=== PATIENT | male | born 1975 | race American Indian/Alaskan Native ===

== ENCOUNTER 2016-08-03 14:48 | Emergency (ER) | payer OTHER ==
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
[2016-08-03 19:20] VITALS: BP 143/66
== END 2016-08-03 19:22 | disposition home or self-care (01) ==
LOC: ED 14:48
DX: M54.5 Low back pain (principal); G89.29 Other chronic pain; I10 Essential (primary) hypertension; Z87.891 Personal history of nicotine dependence; Z79.82 Long term (current) use of aspirin; Z79.899 Other long term (current) drug therapy; Z87.828 Personal history of other (healed) physical injury and trauma
CPT/HCPCS: 99282

== ENCOUNTER 2016-12-31 15:30 | Emergency (ER) | payer SELFPAY ==
[2016-12-31 16:25] LABS: Basophils % (Auto) 0.3 % (0.0-1.8); Eosinophils % (Auto) 1.5 % (0.0-4.3); Hemoglobin 15.2 gm/dl (11.8-15.2); Mean Corpuscular HGB Conc 34 % (32-34); Mean Corpuscular Hemoglobin 31 pg (28-32); Mean Corpuscular Volume 92 fl (84-94); Platelet Count 264 K/mm3 (140-440); Red Blood Count 4.88 M/mm3 (3.65-5.03); White Blood Count 8.4 K/mm3 (4.5-11.0)
[2016-12-31 16:47] LABS: Anion Gap 16 mmol/L; Blood Urea Nitrogen 12 mg/dL (9-20); Calcium 9.2 mg/dL (8.4-10.2); Carbon Dioxide 27 mmol/L (22-30); Chloride 101.1 mmol/L (98-107); Glucose 83 mg/dL (75-100); Potassium 4.2 mmol/L (3.6-5.0); Sodium 140 mmol/L (137-145)
[2016-12-31] MEDS ORDERED: MORPHINE IV ONE (19:28)
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
[2016-12-31] MEDS ORDERED: NACL ONE (20:03)
--- NOTE | 2016-12-31 20:49 | Cat Scan Report ---
FINAL REPORT PROCEDURE: CT ANGIO CHEST TECHNIQUE: Computerized tomographic angiography of the chest was performed after the IV injection of iodinated nonionic contrast including image processing. The image data was postprocessed using 2-dimensional multiplanar reformatted (MPR) and 3-dimensional (MIP and/or volume rendered) techniques. HISTORY: chest pain radiating to back sharp COMPARISON: No prior studies are available for comparison. FINDINGS: Likely mild atelectasis is seen in the right lung base laterally. No pneumothorax or pleural effusion is seen. No mediastinal lymphadenopathy is seen. Heart and thoracic aorta are normal in size. No aortic dissection is seen. Possible small hiatus hernia is seen. Timing of contrast bolus in the pulmonary arteries is slightly suboptimal. No pulmonary embolus is seen. IMPRESSION: No pulmonary embolus is seen. Possible small hiatus hernia is seen.
--- NOTE | 2016-12-31 21:28 | Cat Scan Report ---
FINAL REPORT PROCEDURE: CT ANGIO ABDOMEN PELVIS TECHNIQUE: Computerized axial tomographic angiography of the abdomen and pelvis was performed after the IV injection of iodinated nonionic contrast. The image data was postprocessed using 3D MIP technique. HISTORY: chest pain radiating to back sharp COMPARISON: No prior studies are available for comparison. FINDINGS: Liver and spleen appear normal. Gallbladder, pancreas, and adrenal glands appear normal. No renal or bladder abnormality is seen. There is no free pelvic fluid. Appendix is not seen but no pericecal inflammation is seen. There may be mild constipation but no suggestion of colitis is seen. No evidence of bowel obstruction is seen. The abdominal aorta is normal in size. No stenosis is seen in the aorta or iliac arteries. There is no narrowing of the renal arteries. Accessory renal artery is seen inferiorly on the right. Main left renal vein passes anterior to the aorta but the accessory left renal vein passes posterior to the aorta. No stenosis is seen of the SMA. Distal SMA branches appear to enhance normally. 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 It could be a congenital variant, as no plaque is seen in this region. There is seen likely mild poststenotic dilation. Small hiatus hernia is seen. Shotty reactive lymph nodes are seen in the retroperitoneum and small bowel mesentery. 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 This may be a congenital variant as no associated plaque or extrinsic mass effect is seen. There is likely mild diffuse constipation.
[2017-01-01 00:28] VITALS: BP 122/77
--- NOTE | 2017-01-01 07:49 | XRay Report ---
Chest 2 views: Compared to 06/24/15. History: Chest pain. Findings: Normal cardiomediastinal silhouette. Trachea is midline. No consolidation, pneumothorax or pleural effusion. Impression: No acute cardiopulmonary findings.
== END 2017-01-01 00:27 | disposition home or self-care (01) ==
LOC: ED 15:30
DX: R07.89 Other chest pain (principal); K59.00 Constipation, unspecified; I10 Essential (primary) hypertension; J45.909 Unspecified asthma, uncomplicated; Z88.6 Allergy status to analgesic agent; Z79.82 Long term (current) use of aspirin
CPT/HCPCS: 36415; 71020; 71275; 74174; 80048; 84484; 85025; 85379; 93005; 93010; 96374; 99285; J2270; Q9967

== ENCOUNTER 2017-03-01 20:27 | Emergency (ER) | payer SELFPAY ==
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
[2017-03-02] MEDS ORDERED: PERCOCET 5/325 PO ONE (03:10)
[2017-03-02] MEDS ORDERED: FLEXERIL PO ONE (03:10)
[2017-03-02 04:32] VITALS: BP 144/95
== END 2017-03-02 03:35 | disposition home or self-care (01) ==
LOC: ED 20:27
DX: G89.29 Other chronic pain (principal); M54.6 Pain in thoracic spine; I10 Essential (primary) hypertension; J45.909 Unspecified asthma, uncomplicated; F17.210 Nicotine dependence, cigarettes, uncomplicated; Z79.82 Long term (current) use of aspirin
CPT/HCPCS: 99282

== ENCOUNTER 2017-04-21 14:55 | Emergency (ER) | payer SELFPAY ==
[2017-04-21] MEDS ORDERED: TORADOL IM ONE (20:12)
[2017-04-21] MEDS ORDERED: TYLENOL PO ONE (20:14)
--- NOTE | 2017-04-21 21:34 | XRay Report ---
FINAL REPORT PROCEDURE: XR SPINE LUMBOSACRAL 2-3V TECHNIQUE: Lumbar spine radiographs, including AP, lateral, and lumbosacral spot views. CPT 36071 HISTORY: spinal tenderness COMPARISON: No prior studies are available for comparison. FINDINGS: The vertebral body heights and alignment are maintained. Disc spaces are preserved. No scoliosis. No focal osseous lesion is seen. IMPRESSION: No acute abnormality is identified.
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
[2017-04-21 23:05] VITALS: BP 134/87
== END 2017-04-21 22:10 | disposition home or self-care (01) ==
LOC: ED 14:55
DX: S39.012A Strain of muscle, fascia and tendon of lower back, initial encounter (principal); I10 Essential (primary) hypertension; J45.909 Unspecified asthma, uncomplicated; Z88.8 Allergy status to other drugs, medicaments and biological substances; X58.XXXA Exposure to other specified factors, initial encounter; Y93.89 Activity, other specified; Y99.8 Other external cause status; Y92.89 Other specified places as the place of occurrence of the external cause
CPT/HCPCS: 72100; 99283

== ENCOUNTER 2017-06-18 08:11 | Emergency (ER) | payer OTHER ==
[2017-06-18 08:49] LABS: Basophils % (Auto) 0.4 % (0.0-1.8); Eosinophils % (Auto) 1.9 % (0.0-4.3); Hematocrit 43.5 % (35.5-45.6); Hemoglobin 14.9 gm/dl (11.8-15.2); Mean Corpuscular HGB Conc 34 % (32-34); Mean Corpuscular Hemoglobin 32 pg (28-32); Mean Corpuscular Volume 93 fl (84-94); Platelet Count 219 K/mm3 (140-440); Red Cell Distribution Width 13.6 % (13.2-15.2); White Blood Count 13.3 K/mm3 (4.5-11.0)
[2017-06-18 09:04] LABS: Anion Gap 17 mmol/L; BUN/Creatinine Ratio 10; Blood Urea Nitrogen 7 mg/dL (9-20); Calcium 8.9 mg/dL (8.4-10.2); Carbon Dioxide 25 mmol/L (22-30); Chloride 102.1 mmol/L (98-107); Glucose 102 mg/dL (75-100); Sodium 140 mmol/L (137-145)
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
[2017-06-18] MEDS ORDERED: PROVENTIL IH ONE (13:21)
[2017-06-18] MEDS ORDERED: NORCO 5/325 PO ONE (13:21)
[2017-06-18] MEDS ORDERED: ATROVENT IH ONE (13:21)
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
[2017-06-18 13:40] LABS: Creatine Kinase MB 11.2 ng/mL (0.0-4.0)
[2017-06-18 13:53] LABS: Creatine Kinase 3201 units/L (55-170)
[2017-06-18] MEDS ORDERED: NACL 0.9% 1000 ML 1,000 ML IV ONE ×2 (13:57→15:20)
[2017-06-18] MEDS ORDERED: PLAVIX PO ONE (13:58)
[2017-06-18] MEDS ORDERED: NITRO-BID 2% TP ONE (13:59)
--- NOTE | 2017-06-18 15:19 | History and Physical Report ---
History of Present Illness Chief complaint: Im coughing, and my chest hurts History of present illness: 42 YO Male HTN, Asthma presents to ED for evaluation. Pt seen and evaluated in ED for atypical chest pain and productive cough suspicious for Atypical pneumonia. Pt treated with cardiac enzyme, ekg, and telemetry monitoring which was not indicative of acute ischemia. Pt treated with Iv abx and IVF with resolution of symptoms. Pt medically optimized and back to usual state of health. Pt discharged home and instructed to f/u pcp 1wk. Past History Past Medical History: other (asthma) Past Surgical History: No surgical history, Other (reviewed) Social history: , lives with family. denies: smoking, alcohol abuse, prescription drug abuse Family history: no significant family history Medications and Allergies Allergies Allergy/AdvReac Type Severity Reaction Status Date / Time ibuprofen Allergy Unknown Verified 05/04/17 14:56 Home Medications Medication Instructions Recorded Confirmed Last Taken Type Ciprofloxacin HCl [Ciprofloxacin 500 mg PO Q12H #14 tab 06/18/17 Unknown Rx TAB] Active Meds: Active Medications Sodium Chloride (Nacl 0.9% 1000 Ml) 1,000 mls @ 250 mls/hr IV ONCE ONE Stop: 06/18/17 17:56 Last Admin: 06/18/17 15:15 Dose: 250 mls/hr Review of Systems Constitutional: no weight loss, no weight gain, no fever, no chills Ears, nose, mouth and throat: no ear pain, no ear discharge, no tinnitis, no decreased hearing, no nose pain, no nasal congestion Respiratory: cough, no hemoptysis, no shortness of breath, no dyspnea on exertion Gastrointestinal: no abdominal pain, no nausea, no vomiting, no diarrhea Genitourinary Male: no hematuria, no flank pain, no discharge, no urinary frequency Rectal: no pain, no incontinence, no bleeding Musculoskeletal: no neck stiffness, no neck pain, no shooting arm pain, no arm numbness/tingling, no low back pain Integumentary: no rash, no pruritis, no redness, no sores, no wounds, no jaundice Neurological: no transient paralysis, no paralysis, no weakness, no parathesias , no numbness, no tingling, no seizures Psychiatric: no anxiety, no memory loss, no change in sleep habits, no hypersomnia, no change in appetite, no change in libido Endocrine: no cold intolerance, no heat intolerance, no polyphagia, no excessive thirst, no polydipsia Hematologic/Lymphatic: no easy bruising, no easy bleeding Allergic/Immunologic: no urticaria, no allergic rhinitis, no wheezing Exam - Constitutional Vitals: Temp Pulse Resp BP Pulse Ox 99.2 F 86 16 126/84 97 06/18/17 13:19 06/18/17 14:53 06/18/17 13:36 06/18/17 14:53 06/18/17 13:19 General appearance: Present: no acute distress, well-nourished - EENT Eyes: Present: PERRL ENT: hearing intact, clear oral mucosa - Neck Neck: Present: supple, normal ROM - Respiratory Respiratory effort: normal Respiratory: bilateral: CTA - Cardiovascular Heart Sounds: Present: S1 & S2. Absent: rub, click - Extremities Extremities: pulses symmetrical, No edema Peripheral Pulses: within normal limits - Abdominal General gastrointestinal: Present: soft, non-tender, non-distended, normal bowel sounds Male genitourinary: Present: normal - Integumentary Integumentary: Present: clear, warm, dry - Musculoskeletal Musculoskeletal: gait normal, strength equal bilaterally - Psychiatric Psychiatric: appropriate mood/affect, intact judgment & insight - Neurologic Neurologic: CNII-XII intact, moves all extremities Results - Labs CBC & Chem 7: 06/18/17 08:29 06/18/17 08:29 Labs: Abnormal lab results 06/18/17 06/18/17 06/18/17 Range/Units 08:29 08:29 Unknown WBC 13.3 H (4.5-11.0) K/mm3 Lymph % (Auto) 9.4 L (13.4-35.0) % Seg Neutrophils % 82.4 H (40.0-70.0) % Seg Neutrophils # 11.0 H (1.8-7.7) K/mm3 BUN 7 L (9-20) mg/dL Creatinine 0.7 L (0.8-1.5) mg/dL Glucose 102 H (75-100) mg/dL Total Creatine Kinase 3201 H (55-170) units/L CK-MB (CK-2) 11.2 H (0.0-4.0) ng/mL Assessment and Plan - Patient Problems (1) Atypical pneumonia Current Visit: Yes Status: Acute Plan to address problem: IV abx, CXR, Pt discharged home with oral abx, and instructed to f/u pcp within 1wk. (2) Atypical chest pain Current Visit: No Status: Acute Plan to address problem: secondary to atypical pneumonia, and persistent cough.
[2017-06-18] MEDS ORDERED: LEVAQUIN 750MG/150ML 750 MG/150 ML BAG IV ONE (16:00)
[2017-06-18 19:01] VITALS: BP 135/79
== END 2017-06-18 19:03 | disposition admitted as inpatient to this hospital (09) ==
LOC: ED 08:11
DX: R07.89 Other chest pain (principal); M62.82 Rhabdomyolysis; I10 Essential (primary) hypertension; J45.909 Unspecified asthma, uncomplicated; G89.29 Other chronic pain
CPT/HCPCS: 36415; 71020; 80048; 82550; 82553; 83880; 84484; 85025; 85379; 87040; 93005; 93010; 94640; 96361; 96365; 99284; J1956; J7030

== ENCOUNTER 2017-07-01 14:42 | Emergency (ER) | payer SELFPAY | END 2017-07-01 17:30 | disposition left against medical advice (07) | LOC: ED 14:42 | DX: Z53.21 Procedure and treatment not carried out due to patient leaving prior to being seen by health care provider (principal) ==

== ENCOUNTER 2017-09-25 08:39 | Inpatient (IN) | payer BC, OTHER ==
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
[2017-09-25] MEDS ORDERED: NORCO 10/325 PO ONE (09:45)
[2017-09-25] MEDS ORDERED: ZOFRAN ODT PO ONE (09:45)
--- NOTE | 2017-09-25 10:21 | XRay Report ---
AP AND LATERAL LUMBOSACRAL SPINE: History: Lower back pain, sciatica The vertebral bodies are well mineralized and normal in alignment and vertebral height with well preserved interspace distances. The visualized portions of the posterior elements are normal. IMPRESSION: Lumbar spine within normal limits.
[2017-09-25 10:51] LABS: Bacteria,Urine 1+ /HPF (Negative); Bilirubin,Urine NEG (Negative); Blood,Urine MOD (Negative); Color,Urine Yellow (Yellow); Mucus,Urine FEW /HPF; Protein,Urine <15 mg/dL mg/dL (Negative); Urobilinogen,Urine < 2.0 mg/dL (<2.0)
[2017-09-25] MEDS ORDERED: TYLENOL PO ONE (11:30)
[2017-09-25 12:03] LABS: Basophils % (Auto) 0.5 % (0.0-1.8); Eosinophils # (Auto) 0.2 K/mm3 (0.0-0.4); Eosinophils % (Auto) 2.3 % (0.0-4.3); Hematocrit 50.7 % (35.5-45.6); Hemoglobin 17.4 gm/dl (11.8-15.2); Lymphocytes # (Auto) 2.5 K/mm3 (1.2-5.4); Lymphocytes % (Auto) 29.2 % (13.4-35.0); Mean Corpuscular HGB Conc 34 % (32-34); Mean Corpuscular Hemoglobin 31 pg (28-32); Mean Corpuscular Volume 91 fl (84-94); Monocytes % (Auto) 11.2 % (0.0-7.3); Platelet Count 247 K/mm3 (140-440); Red Blood Count 5.56 M/mm3 (3.65-5.03); Red Cell Distribution Width 14.1 % (13.2-15.2)
[2017-09-25 12:40] LABS: BUN/Creatinine Ratio 13; Blood Urea Nitrogen 10 mg/dL (9-20); Calcium 8.9 mg/dL (8.4-10.2); Hemolysis Index 10
[2017-09-25] MEDS ORDERED: NACL 0.9% 1000 ML 1,000 ML IV ONE ×2 (12:56→17:26)
[2017-09-25] MEDS ORDERED: ZOFRAN IV ONE (13:46)
[2017-09-25] MEDS ORDERED: MORPHINE IV ONE ×2 (13:46→17:27)
[2017-09-25] MEDS ORDERED: NACL ONE (13:49)
[2017-09-25 14:05] LABS: INR 0.93 (0.87-1.13)
[2017-09-25 14:06] LABS: Partial Thromboplastin Time 27.2 Sec. (24.2-36.6)
--- NOTE | 2017-09-25 15:28 | Cat Scan Report ---
FINAL REPORT EXAM: CT ANGIO ABDOMEN PELVIS HISTORY: lower abd pain, hx of celiac stenosis TECHNIQUE: Multiple sections through the abdomen after IV contrast Multiple sections through the pelvis after IV contrast CT angiographic image post processing of the abdomen and pelvis. PRIORS: 12/31/2016 FINDINGS: Normal-appearing liver, gallbladder, adrenals, pancreas, and spleen normal caliber IVC. Normal-appearing kidneys and ureters Small fat containing umbilical hernia very small fat containing inguinal hernia bilaterally. No retroperitoneal adenopathy. No evidence of mesenteric mass. Normal-appearing stomach and duodenum. No small bowel distention in the abdomen and pelvis. No pelvic free fluid. Normal-appearing urinary bladder, prostate, seminal vesicles, and rectum. No definite sigmoid colon abnormality. No gross ascites, free air, or colonic distention. Normal-appearing cecum and terminal ileum. Appendix not visible. Suture line at the cecal tip may reflect prior appendectomy. CTA images demonstrate normal caliber abdominal aorta without aneurysm or dissection. Diffusely patent SMA and renal arteries. Patent [place]. Once again, there is approximately 90 % diameter severe narrowing at the proximal aspect of the celiac artery involving a segment of approximately 6 mm long. The narrowing is noted just distal to the origin IMPRESSION: Again noted is severe narrowing at the proximal celiac artery, approximately 90 % diameter over a 6 mm long segment Small fat containing umbilical hernia and very small fat containing inguinal hernias
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
[2017-09-25] MEDS ORDERED: MORPHINE IV PRN (21:02)
[2017-09-25] MEDS ORDERED: ZOFRAN IV PRN (21:02)
[2017-09-25] MEDS ORDERED: SODIUM CHLORIDE FLUSH SYRINGE 10 ML IV PRN (21:02)
[2017-09-25] MEDS ORDERED: TYLENOL PO PRN (21:02)
[2017-09-25] MEDS: D5NS 1,000 ML IV SCH (22:58)
[2017-09-25] MEDS: DILAUDID IV PRN (22:58)
[2017-09-25] MEDS: SODIUM CHLORIDE FLUSH SYRINGE 10 ML IV SCH (22:59)
[2017-09-26] MEDS: DILAUDID IV PRN ×3 (04:35→21:41)
[2017-09-26 06:41] LABS: Basophils % (Auto) 0.5 % (0.0-1.8); Eosinophils # (Auto) 0.1 K/mm3 (0.0-0.4); Eosinophils % (Auto) 1.9 % (0.0-4.3); Hematocrit 51.3 % (35.5-45.6); Hemoglobin 17.3 gm/dl (11.8-15.2); Lymphocytes # (Auto) 2.5 K/mm3 (1.2-5.4); Lymphocytes % (Auto) 33.8 % (13.4-35.0); Mean Corpuscular HGB Conc 34 % (32-34); Mean Corpuscular Hemoglobin 31 pg (28-32); Mean Corpuscular Volume 93 fl (84-94); Monocytes # (Auto) 0.7 K/mm3 (0.0-0.8); Monocytes % (Auto) 9.9 % (0.0-7.3); Platelet Count 245 K/mm3 (140-440); Red Cell Distribution Width 14.1 % (13.2-15.2)
[2017-09-26] MEDS: D5NS 1,000 ML IV SCH ×2 (06:44→14:53)
[2017-09-26 07:32] LABS: Alanine Aminotransferase 19 units/L (7-56); Albumin 3.8 g/dL (3.9-5); BUN/Creatinine Ratio 10; Blood Urea Nitrogen 8 mg/dL (9-20); Calcium 8.6 mg/dL (8.4-10.2); Hemolysis Index 19
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
[2017-09-26] MEDS: COZAAR PO SCH (09:33)
[2017-09-26] MEDS: SODIUM CHLORIDE FLUSH SYRINGE 10 ML IV SCH ×2 (09:34→21:39)
[2017-09-26] MEDS: NORCO 5/325 PO PRN (10:01)
--- NOTE | 2017-09-26 15:33 | Progress Note ---
Assessment and Plan Assessment and plan: --Celiac artery stenosis; on CTA abdomen Vascular evaluated the patient, no intervention needed advised aspirin --Low back pain; possible radiculopathy Pending MRI lumbosacral spine, and medications Ambulate as tolerated --Hypertension; moderate control Continue current antihypertensives and when necessary medications --DVT prophylaxis; heparin Closely monitor the patient and adjust management as needed Patient may need to follow neurosurgery/orthopedic for further evaluation of his low back pain Possible discharge in 1-2 days if stabl History Interval history: Patient seen and examined medical records reviewed Vascular evaluation and recommendations noted and appreciated MRI lumbosacral spine pending Patiently slightly but pain slightly improved Metabolic oriented 3 not in acute distress Hospitalist Physical - Constitutional Vitals: Temp Pulse Resp BP Pulse Ox 98.3 F 54 L 20 140/75 100 09/26/17 08:00 09/26/17 08:00 09/26/17 08:00 09/26/17 09:33 09/26/17 08:00 General appearance: Present: no acute distress, well-nourished, obese - EENT Eyes: Present: PERRL, EOM intact - Neck Neck: Present: supple, normal ROM - Respiratory Respiratory effort: normal Respiratory: bilateral: diminished, negative: rales, rhonchi, wheezing - Cardiovascular Rhythm: regular Heart Sounds: Present: S1 & S2 - Extremities Extremities: no ischemia, No edema - Abdominal General gastrointestinal: soft, non-tender, non-distended, normal bowel sounds - Integumentary Integumentary: Present: clear, warm - Psychiatric Psychiatric: appropriate mood/affect, cooperative - Neurologic Neurologic: CNII-XII intact, moves all extremities Results - Labs CBC & Chem 7: 09/26/17 05:46 09/26/17 05:46 Labs: Laboratory Last Values WBC 7.3 K/mm3 (4.5-11.0) 09/26/17 05:46 RBC 5.50 M/mm3 (3.65-5.03) H 09/26/17 05:46 Hgb 17.3 gm/dl (11.8-15.2) H 09/26/17 05:46 Hct 51.3 % (35.5-45.6) H 09/26/17 05:46 MCV 93 fl (84-94) 09/26/17 05:46 MCH 31 pg (28-32) 09/26/17 05:46 MCHC 34 % (32-34) 09/26/17 05:46 RDW 14.1 % (13.2-15.2) 09/26/17 05:46 Plt Count 245 K/mm3 (140-440) 09/26/17 05:46 Lymph % (Auto) 33.8 % (13.4-35.0) 09/26/17 05:46 [place] % (Auto) 9.9 % (0.0-7.3) H 09/26/17 05:46 Eos % (Auto) 1.9 % (0.0-4.3) 09/26/17 05:46 Baso % (Auto) 0.5 % (0.0-1.8) 09/26/17 05:46 Lymph # 2.5 K/mm3 (1.2-5.4) 09/26/17 05:46 [place] # 0.7 K/mm3 (0.0-0.8) 09/26/17 05:46 Eos # 0.1 K/mm3 (0.0-0.4) 09/26/17 05:46 Baso # 0.0 K/mm3 (0.0-0.1) 09/26/17 05:46 Seg Neutrophils % 53.9 % (40.0-70.0) 09/26/17 05:46 Seg Neutrophils # 3.9 K/mm3 (1.8-7.7) 09/26/17 05:46 PT 12.9 Sec. (12.2-14.9) 09/25/17 13:28 INR 0.93 (0.87-1.13) 09/25/17 13:28 APTT 27.2 Sec. (24.2-36.6) 09/25/17 13:28 Sodium 142 mmol/L (137-145) 09/26/17 05:46 Potassium 4.0 mmol/L (3.6-5.0) 09/26/17 05:46 Chloride 100.7 mmol/L (98-107) 09/26/17 05:46 Carbon Dioxide 30 mmol/L (22-30) 09/26/17 05:46 Anion Gap 15 mmol/L 09/26/17 05:46 BUN 8 mg/dL (9-20) L 09/26/17 05:46 Creatinine 0.8 mg/dL (0.8-1.5) 09/26/17 05:46 Estimated GFR > 60 ml/min 09/26/17 05:46 BUN/Creatinine Ratio 10 % 09/26/17 05:46 Glucose 87 mg/dL (75-100) 09/26/17 05:46 Lactic Acid 2.60 mmol/L (0.7-2.0) H* 09/25/17 16:52 Calcium 8.6 mg/dL (8.4-10.2) 09/26/17 05:46 Total Bilirubin 0.80 mg/dL (0.1-1.2) 09/26/17 05:46 AST 20 units/L (5-40) 09/26/17 05:46 ALT 19 units/L (7-56) 09/26/17 05:46 Alkaline Phosphatase 60 units/L (35-129) 09/26/17 05:46 Total Creatine Kinase 294 units/L (55-170) H 09/25/17 11:39 Total Protein 6.9 g/dL (6.3-8.2) 09/26/17 05:46 Albumin 3.8 g/dL (3.9-5) L 09/26/17 05:46 Albumin/Globulin Ratio 1.2 % 09/26/17 05:46 Urine Color Yellow (Yellow) 09/25/17 10:34 Urine Turbidity Clear (Clear) 09/25/17 10:34 Urine pH 5.0 (5.0-7.0) 09/25/17 10:34 Ur Specific [place] 1.020 (1.003-1.030) 09/25/17 10:34 Urine Protein <15 mg/dl mg/dL (Negative) 09/25/17 10:34 Urine Glucose (UA) Neg mg/dL (Negative) 09/25/17 10:34 Urine Ketones Neg mg/dL (Negative) 09/25/17 10:34 Urine Blood Mod (Negative) 09/25/17 10:34 Urine Nitrite Neg (Negative) 09/25/17 10:34 Urine Bilirubin Neg (Negative) 09/25/17 10:34 Urine Urobilinogen < 2.0 mg/dL (<2.0) 09/25/17 10:34 Ur Leukocyte Esterase Neg (Negative) 09/25/17 10:34 Urine WBC (Auto) 1.0 /HPF (0.0-6.0) 09/25/17 10:34 Urine RBC (Auto) 14.0 /HPF (0.0-6.0) 09/25/17 10:34 U Epithel Cells (Auto) < 1.0 /HPF (0-13.0) 09/25/17 10:34 Urine Bacteria (Auto) 1+ /HPF (Negative) 09/25/17 10:34 Urine Mucus Few /HPF 09/25/17 10:34 Blood Type A POSITIVE 09/25/17 13:28 Antibody Screen Negative 09/25/17 13:28
[2017-09-27] MEDS: D5NS 1,000 ML IV SCH (03:19)
[2017-09-27] MEDS: DILAUDID IV PRN ×2 (03:27→08:59)
[2017-09-27] MEDS: SODIUM CHLORIDE FLUSH SYRINGE 10 ML IV SCH (09:00)
[2017-09-27] MEDS: COZAAR PO SCH (11:02)
--- NOTE | 2017-09-27 13:18 | Discharge Summary ---
Providers - Providers Date of Admission: 09/25/17 16:39 Date of discharge: 09/27/17 Attending physician: SUSU MILLER 09/25/17 21:02 Consult to Physician [CONS] Routine Comment: Consulting Provider: SANTIAGO BARBOSA Physician Instructions: Reason For Exam: Celiac artery occlusion Primary care physician: HOUSING INSPECTOR Hospitalization Condition: Stable Disposition: DC-01 TO HOME OR SELFCARE Time spent for discharge: 31 min Core Measure Documentation - Palliative Care Palliative Care/ Comfort Measures: Not Applicable - Core Measures Any of the following diagnoses?: none Exam - Constitutional Vitals: Temp Pulse Resp BP Pulse Ox 98.5 F 58 L 20 147/62 99 09/27/17 11:27 09/27/17 11:27 09/27/17 11:27 09/27/17 11:27 09/27/17 11:27 General appearance: Present: no acute distress, well-nourished - EENT Eyes: Present: PERRL, EOM intact - Neck Neck: Present: supple, normal ROM - Respiratory Respiratory effort: normal Respiratory: bilateral: diminished, negative: rales, rhonchi, wheezing - Cardiovascular Rhythm: regular Heart Sounds: Present: S1 & S2 - Extremities Extremities: no ischemia, No edema - Abdominal General gastrointestinal: Present: soft, non-tender, non-distended, normal bowel sounds - Integumentary Integumentary: Present: clear, warm - Musculoskeletal Musculoskeletal: strength equal bilaterally - Psychiatric Psychiatric: appropriate mood/affect, cooperative - Neurologic Neurologic: CNII-XII intact, moves all extremities Plan Activity: no restrictions Diet: regular Additional Instructions: Advised to see private neurosurgeon or orthopedic surgeon. For further evaluation and management Follow up with: [facility] [place]Outside] - 3-5 Days [facility] [Outside] - 3-5 Days KARINA HASSAN MD [Staff Physician] - 3-5 Days ARMAND DALE MD [Staff Physician] - 7 Days Prescriptions: HYDROcodone/APAP 5-325 [[place] 5-325 mg TAB] 1 each PO BID PRN #10 tablet PRN Reason: Pain, Moderate (4-6) Losartan [Cozaar] 50 mg PO QDAY #30 tablet
--- NOTE | 2017-09-27 16:40 | Magnetic Resonance Report ---
FINAL REPORT EXAM: MR LUMBAR SPINE WO CON HISTORY: Lumbar radiculopathy TECHNIQUE: MRI lumbar spine without contrast PRIORS: None. FINDINGS: Distal cord and conus demonstrate normal signal intensity From T12-L1 through L4-5 there is no focal disc herniation or bulge there is no evidence for canal or foraminal stenosis There is a moderate broad-based central posterior disc herniation of the protrusion type at L5-S1. Disc contacts the anterior aspect of the thecal sac and the S1 nerve roots at the lateral recesses. There is signal change within S1 vertebral body which is low signal on T1 and high signal on T2 representing Modic type 1 changes There is a small focus of endplate signal seen at the posterior inferior aspect of the L5 vertebral body consistent with Modic type 2 changes. There is no evidence for increased signal within the disc to suggest presence of discitis. IMPRESSION: Posterior disc herniation at L5-S1 with Modic 1 signal changes S1 vertebral body and small focus of Modic type 2 signal change L5 vertebral body.
[2017-09-27 17:19] VITALS: BP 138/82
[2017-09-27] MEDS: NORCO 5/325 PO PRN (17:19)
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
== END 2017-09-27 19:12 | disposition home or self-care (01) | DRG 392 ==
LOC: ED 08:39 → 3A 16:39 → ED 19:08
PROVIDERS: ADMIT Internal Medicine; ATTEND Internal Medicine
DX: I77.4 Celiac artery compression syndrome (principal); E87.2 Acidosis; I10 Essential (primary) hypertension; M54.10 Radiculopathy, site unspecified; Z88.8 Allergy status to other drugs, medicaments and biological substances; J45.909 Unspecified asthma, uncomplicated; Z87.891 Personal history of nicotine dependence; M54.32 Sciatica, left side; E86.0 Dehydration
CPT/HCPCS: 36415; 72040; 72100; 72148; 74174; 80048; 80053; 81001; 82140; 82550; 85025; 85610; 85730; 86850; 86900; 86901; 96361; 96374; 96375; J1170; J2270; J2405; J7030; J7042; Q0162; Q9967

== ENCOUNTER 2017-10-21 07:59 | Emergency (ER) | payer BC, OTHER ==
[2017-10-21] MEDS ORDERED: TYLENOL PO ONE (08:00)
[2017-10-21 08:13] VITALS: BP 153/103
[2017-10-21] MEDS ORDERED: TYLENOL ONE (08:15)
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
== END 2017-10-21 11:04 | disposition home or self-care (01) ==
LOC: ED 07:59
DX: M54.32 Sciatica, left side (principal); Z88.8 Allergy status to other drugs, medicaments and biological substances
CPT/HCPCS: 99282

== ENCOUNTER 2019-08-02 10:32 | Emergency (ER) | payer SELFPAY ==
[2019-08-02] MEDS ORDERED: SODIUM CHLORIDE 0.9% 1000 ML 1,000 ML IV ONE (10:46)
[2019-08-02] MEDS ORDERED: NALOXONE 0.4 MG/1 ML INJ IV ONE (10:46)
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
[2019-08-02 11:58] LABS: Basophils # (Auto) 0.1 K/mm3 (0.0-0.1); Basophils % (Auto) 0.7 % (0.0-1.8); Eosinophils # (Auto) 0.1 K/mm3 (0.0-0.4); Eosinophils % (Auto) 0.8 % (0.0-4.3); Hematocrit 40.9 % (35.5-45.6); Hemoglobin 13.8 gm/dl (11.8-15.2); Lymphocytes # (Auto) 1.1 K/mm3 (1.2-5.4); Lymphocytes % (Auto) 11.1 % (13.4-35.0); Mean Corpuscular HGB Conc 34 % (32-34); Mean Corpuscular Volume 92 fl (84-94); Monocytes # (Auto) 0.8 K/mm3 (0.0-0.8); Monocytes % (Auto) 7.5 % (0.0-7.3); Platelet Count 255 K/mm3 (140-440); Red Blood Count 4.43 M/mm3 (3.65-5.03); Red Cell Distribution Width 14.6 % (13.2-15.2)
[2019-08-02 12:12] LABS: Alanine Aminotransferase 26 units/L (7-56); Albumin 3.8 g/dL (3.9-5); BUN/Creatinine Ratio 19; Blood Urea Nitrogen 15 mg/dL (9-20); Calcium 8.4 mg/dL (8.4-10.2); Hemolysis Index 17
[2019-08-02 12:34] LABS: Bilirubin,Urine NEG (Negative); Blood,Urine MOD (Negative); Color,Urine Straw (Yellow); Protein,Urine <15 mg/dL mg/dL (Negative); Urobilinogen,Urine < 2.0 mg/dL (<2.0); WBC,Urine < 1.0 /HPF (0.0-6.0)
[2019-08-02 12:50] LABS: Amphetamine Screen,Urine PRESUMPTIVE NEGATIVE; Benzodiazepines Screen,Urine PRESUMPTIVE NEGATIVE; Cannabinoid Screen,Urine PRESUMPTIVE NEGATIVE; Cocaine Screen,Urine PRESUMPTIVE NEGATIVE; Methadone Screen,Urine PRESUMPTIVE NEGATIVE
[2019-08-02 13:10] LABS: Opiate Screen,Urine PRESUMPTIVE POSITIVE
[2019-08-02] MEDS ORDERED: ACETAMINOPHEN 325 MG TAB PO ONE (17:18)
[2019-08-02] MEDS ORDERED: ACETAMINOPHEN 325 MG TAB ONE (17:25)
[2019-08-02 18:56] VITALS: BP 116/76
== END 2019-08-02 18:50 | disposition home or self-care (01) ==
LOC: ED 10:32
DX: R41.82 Altered mental status, unspecified (principal); F11.10 Opioid abuse, uncomplicated; F32.9 Major depressive disorder, single episode, unspecified; I10 Essential (primary) hypertension; J45.909 Unspecified asthma, uncomplicated; Z79.899 Other long term (current) drug therapy; Z88.6 Allergy status to analgesic agent
CPT/HCPCS: 36415; 80053; 80307; 81001; 85025; 96361; 96374; 99284; J2310; J7030

== ENCOUNTER 2020-03-09 10:56 | Emergency (ER) | payer SELFPAY ==
[2020-03-09] MEDS ORDERED: NALOXONE 2 MG/2 ML INJ ONE (11:02)
[2020-03-09] MEDS ORDERED: ONDANSETRON 4 MG/2 ML INJ ONE (11:06)
[2020-03-09] MEDS ORDERED: NALOXONE 0.4 MG/1 ML INJ IV ONE (11:09)
[2020-03-09] MEDS ORDERED: NALOXONE 2 MG/2 ML 2 MG in SODIUM CHLORIDE 0.9% 500 ML 500 ML IV ONE (11:09)
[2020-03-09] MEDS ORDERED: SODIUM CHLORIDE 0.9% 1000 ML 1,000 ML IV ONE (11:09)
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
[2020-03-09 12:23] LABS: Basophils % (Auto) 0.5 % (0.0-1.8); Eosinophils # (Auto) 0.2 K/mm3 (0.0-0.4); Eosinophils % (Auto) 2.4 % (0.0-4.3); Hematocrit 44.4 % (35.5-45.6); Lymphocytes # (Auto) 1.2 K/mm3 (1.2-5.4); Lymphocytes % (Auto) 18.9 % (13.4-35.0); Mean Corpuscular HGB Conc 34 % (32-34); Mean Corpuscular Volume 94 fl (84-94); Monocytes # (Auto) 0.7 K/mm3 (0.0-0.8); Monocytes % (Auto) 10.3 % (0.0-7.3); Platelet Count 245 K/mm3 (140-440); Red Blood Count 4.72 M/mm3 (3.65-5.03); Red Cell Distribution Width 13.6 % (13.2-15.2)
[2020-03-09 12:34] LABS: Alanine Aminotransferase 18 units/L (7-56); Albumin 4.1 g/dL (3.9-5); BUN/Creatinine Ratio 12; Blood Urea Nitrogen 12 mg/dL (9-20); Calcium 9.3 mg/dL (8.4-10.2); Hemolysis Index 4
[2020-03-09 12:35] LABS: Bilirubin,Direct < 0.2 mg/dL (0-0.2)
[2020-03-09 13:57] LABS: Bilirubin,Urine NEG (Negative); Blood,Urine SM (Negative); Color,Urine Straw (Yellow); Mucus,Urine FEW /HPF; Protein,Urine <15 mg/dL mg/dL (Negative); Urobilinogen,Urine < 2.0 mg/dL (<2.0)
[2020-03-09 14:06] LABS: Amphetamine Screen,Urine PRESUMPTIVE NEGATIVE; Benzodiazepines Screen,Urine PRESUMPTIVE NEGATIVE; Cannabinoid Screen,Urine PRESUMPTIVE POSITIVE; Cocaine Screen,Urine PRESUMPTIVE NEGATIVE; Methadone Screen,Urine PRESUMPTIVE NEGATIVE; Opiate Screen,Urine PRESUMPTIVE NEGATIVE
[2020-03-09 15:36] VITALS: BP 141/76
== END 2020-03-09 18:48 | disposition home or self-care (01) ==
LOC: ED 10:56
DX: T40.1X1A Poisoning by heroin, accidental (unintentional), initial encounter (principal); T40.4X1A Poisoning by other synthetic narcotics, accidental (unintentional), initial encounter; J96.00 Acute respiratory failure, unspecified whether with hypoxia or hypercapnia; I10 Essential (primary) hypertension; J44.9 Chronic obstructive pulmonary disease, unspecified; F15.10 Other stimulant abuse, uncomplicated; Z79.899 Other long term (current) drug therapy; Y92.89 Other specified places as the place of occurrence of the external cause
CPT/HCPCS: 36415; 80048; 80076; 80307; 81001; 85025; 93005; 96361; 96365; 96366; 96375; 99284; J2310; J2405; J7030; J7040; 80320; G0480

== ENCOUNTER 2021-09-16 02:35 | Inpatient (IN) | payer SELFPAY ==
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
[2021-09-16 03:33] LABS: Hematocrit 38.9 % (35.5-45.6); Hemoglobin 12.8 gm/dl (11.8-15.2); Mean Corpuscular HGB Conc 33 % (32-34); Mean Corpuscular Volume 95 fl (84-94); Platelet Count 224 K/mm3 (140-440); Red Blood Count 4.12 M/mm3 (3.65-5.03); Red Cell Distribution Width 13.8 % (13.2-15.2)
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
[2021-09-16 03:41] LABS: Creatine Kinase MB 6.3 ng/mL (0.0-4.0)
[2021-09-16 03:43] LABS: INR 1.09 (0.87-1.13)
[2021-09-16 03:44] LABS: Alanine Aminotransferase 174 units/L (7-56); Albumin 3.5 g/dL (3.9-5); BUN/Creatinine Ratio 11; Blood Urea Nitrogen 18 mg/dL (9-20); Calcium 8.3 mg/dL (8.4-10.2); Hemolysis Index 35
[2021-09-16] MEDS ORDERED: SODIUM BICARB 8.4% 50 MEQ/50 ML SYRINGE IV ONE ×2 (04:26→07:56)
[2021-09-16 04:48] LABS: Hyaline Casts,Urine 6 /LPF; Mucus,Urine FEW /HPF; Sperm,Urine 1+ /HPF (NP)
[2021-09-16 04:52] LABS: Basophils % (Manual) 0 % (0.0-1.8); Total Cells Counted 100
[2021-09-16 04:54] LABS: Platelet Estimate Consistent w Auto; RBC Morphology Normal
[2021-09-16 04:54] LABS: Color,Urine Yellow (Yellow)
[2021-09-16 04:55] LABS: Bilirubin,Urine Negative (Negative); Blood,Urine Small (Negative); Protein,Urine >500 mg/dL (Negative); Urobilinogen,Urine < 2.0 mg/dL (<2.0)
[2021-09-16 05:08] LABS: Amphetamine Screen,Urine Negative; Benzodiazepines Screen,Urine Negative; Cannabinoid Screen,Urine Negative; Cocaine Screen,Urine Negative; Methadone Screen,Urine Negative; Opiate Screen,Urine Negative
[2021-09-16] MEDS ORDERED: ACETAMINOPHEN 325 MG TAB PO PRN ×2 (05:36→05:41)
[2021-09-16] MEDS ORDERED: ONDANSETRON 4 MG/2 ML INJ IV PRN (05:36)
[2021-09-16] MEDS ORDERED: ALBUTEROL 2.5 MG/3 ML NEBU IH PRN (05:36)
[2021-09-16] MEDS ORDERED: HYDROmorphone 1 MG/1 ML INJ IV PRN (05:36)
[2021-09-16] MEDS ORDERED: MORPHINE 2 MG/1 ML INJ IV PRN (05:36)
[2021-09-16] MEDS ORDERED: NITROGLYCERIN 0.4 MG TAB SUBL SL PRN (05:41)
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
[2021-09-16] MEDS ORDERED: hydrALAZINE 20 MG/1 ML INJ IV PRN (05:55)
[2021-09-16] MEDS ORDERED: PIPERACIL/TAZOBACTA 4.5/NS 100 4.5 GM/100 ML VIAL IV SCH (06:00)
[2021-09-16 06:38] LABS: Calcium 8.9 mg/dL (8.4-10.2)
[2021-09-16] MEDS ORDERED: EPINEPHrine 1 MG/10 ML SYRINGE ONE (07:56)
[2021-09-16] MEDS ORDERED: DOPamine DRIP 800 MG/D5W 250ML PreMix IV ONE (07:56)
[2021-09-16 08:23] LABS: ABG Base Excess 5.7 mmol/L (-2.0-3.0); ABG HCO3 26.7 mmol/L (20.0-26.0); ABG Methemoglobin 0.5 % (0.0-1.5); ABG Oxygen Saturation 99.4 % (95.0-99.0); ABG PCO2 29.2 mm Hg; ABG PH 7.579 pH Units (7.350-7.450); ABG PO2 206.2 mm Hg (80.0-90.0)
[2021-09-16] MEDS: IPRATROPIUM/ALBUTEROL SULFATE 3 ML AMPUL.NEB IH SCH ×3 (08:30→19:37)
[2021-09-16] MEDS: D5W/0.45% NACL 1,000 ML IV SCH ×3 (08:40→22:50)
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
[2021-09-16] MEDS ORDERED: predniSONE 20 MG TAB PO SCH (10:00)
[2021-09-16] MEDS ORDERED: LOSARTAN 50 MG TAB PO SCH (10:00)
--- NOTE | 2021-09-16 10:58 | Electrocardiograph Report ---
[facility] Test Date: 2021-09-16 Test Time: 02:39:57 Pat Name: DEVAN GARCIA Department: Room: A257 Gender: M Engineering Faculty Member: RYDER : 1975 Requested By: LUKAS COLÓN Order Number: [id number] Reading MD: Itz Jansen Measurements Intervals [place] Rate: 119 P: -88 DC: 85 QRS: 91 QRSD: 92 T: 245 QT: 292 QTc: 411 Interpretive Statements Sinus or ectopic atrial tachycardia Repol abnrm, global ischemia, diffuse leads No previous ECG available for comparison Electronically Signed On 09-16-2021 10:57:27 EDT by Itz Jansen
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
[2021-09-16] MEDS: NORepinephrine/NS 8 MG-250 ML 8 MG/250 ML INFUS..BTL IV SCH (12:26)
--- NOTE | 2021-09-16 12:50 | Nuclear Medicine Report ---
NM BRAIN FLOW HISTORY: Overdose. COMPARISON: None. TECHNIQUE: Following administration of radiopharmaceutical, followed by a saline flush, immediate dyn amic images of the head and neck were acquired in the anterior projection. Subsequently, static image s of the head were obtained. RADIOPHARMACEUTICAL: 21 mCi of TC -99 PERTECHNETATE FINDINGS: Complete lack of intracranial radiotracer activity. There is increased collateral flow through the ex ternal carotids to the nose. IMPRESSION: 1. Absent cerebral perfusion. Signer Name: Bret Ventura MD Signed: 09/16/2021 12:46 PM Workstation Name: [id number]
[2021-09-16 13:21] LABS: Chol/HDL Ratio 2.09 %
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
[2021-09-16] MEDS: FAMOTIDINE 20 MG/2 ML INJ IV SCH ×2 (14:45→21:49)
[2021-09-16] MEDS: HEPARIN 5,000 UNIT/1 ML VIAL SUB-Q SCH ×2 (14:45→21:50)
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
[2021-09-16] MEDS ORDERED: SODIUM CHLORIDE 0.9% 1000 ML 1,000 ML IV ONE (23:01)
[2021-09-17] MEDS: NORepinephrine/NS 8 MG-250 ML 8 MG/250 ML INFUS..BTL IV SCH (01:02)
[2021-09-17] MEDS ORDERED: SODIUM CHLORIDE 0.9% 500 ML 500 ML IV ONE (02:53)
[2021-09-17] MEDS: IPRATROPIUM/ALBUTEROL SULFATE 3 ML AMPUL.NEB IH SCH ×3 (02:53→14:10)
[2021-09-17] MEDS: D5W/0.45% NACL 1,000 ML IV SCH ×2 (05:54→12:27)
[2021-09-17] MEDS ORDERED: ASPIRIN EC 325 MG TAB PO SCH (10:00)
[2021-09-17] MEDS: HEPARIN 5,000 UNIT/1 ML VIAL SUB-Q SCH (10:44)
[2021-09-17] MEDS: FAMOTIDINE 20 MG/2 ML INJ IV SCH (10:44)
[2021-09-17 10:48] LABS: ABG Base Excess -2.5 mmol/L (-2.0-3.0); ABG HCO3 25.3 mmol/L (20.0-26.0); ABG Methemoglobin 0.7 % (0.0-1.5); ABG Oxygen Saturation 86.8 % (95.0-99.0); ABG PCO2 56.6 mm Hg; ABG PH 7.269 pH Units (7.350-7.450); ABG PO2 58.7 mm Hg (80.0-90.0)
[2021-09-17 11:05] LABS: ABG Base Excess -3.1 mmol/L (-2.0-3.0); ABG HCO3 29.2 mmol/L (20.0-26.0); ABG Methemoglobin 0.9 % (0.0-1.5); ABG Oxygen Saturation 54.7 % (95.0-99.0); ABG PCO2 94.6 mm Hg
[2021-09-17 11:14] LABS: ABG PO2 39.6 mm Hg (80.0-90.0)
[2021-09-17 11:15] LABS: ABG PH 7.107 pH Units (7.350-7.450)
--- NOTE | 2021-09-17 12:39 | Progress Note ---
Assessment and Plan Assessment and Plan 46-year-old male with history of hypertension, asthma, COPD, history of drug abuse was brought to the emergency room because of cardiac arrest. Per EMS the patient was found unresponsive by family. Upon EMS arrival at 01: 57 the patient was found to be in asystole. ACLS protocols were initiated and the patient was intubated using a Pete airway. Patient was administered a total of 4 mg of Narcan intranasally and 4 rounds of epi and 1 bicarb prior to arrival. Last rhythm prior to arrival was PEA per EMS. Upon arrival to the ED the Pete airway was removed and patient was intubated by myself using the glidescope and 8.0 ET tube. The patient was found to still be in PEA and 1 round of epinephrine and sodium bicarb were given with return of spontaneous circulation. - Patient Problems # Post Cardiac arrest - with delay resuscitation>8-10 minutes was at home -exam is suggest of sever anoxic brain injury / brain -blood flow scan is consistent with above - no cranial nerves activity is noted -caloric test showed no response -Apnea test is done today for 5 minutes no spontaneous breathing is noted HR#120-130 -ABG is done before and after the test with -Initial ABG 7.26/56.6/58.7 -After apnea 7.10/94.6/39.6 ++ findings are consistent with above finding of brain -findings are related to family # Acute respiratory failure -Patient is on vent. DuoNeb by nebulizer every 4 hours. Albuterol by nebulizer every 4 hours as needed. Consult critical care evaluation. # Drug abuse -Patient has history of alcohol and heroin abuse. We will consult the patient regarding quit taking alcohol and heroin # Lactic acidosis -D5 half-normal saline at the rate of 125 cc/h. Zosyn 4.5 g IV every 8 hours. Blood culture sputum culture. Recheck CBC and lactic acid in the morning # HTN (hypertension), benign -Hydralazine 10 mg IV every 6 hours as needed. We continue the home medication # Cardiomyopathy -Echo is noted with Ef#35% sever hypokinesia # Asthma -Patient is on vent. DuoNeb by nebulizer every 4 hours. Albuterol via nebulizer every 4 hours as needed # DVT prophylaxis -Heparin 5000 units subcu every 12 hours for DVT prophylaxis. Pepcid 20 mg IV every 12 hours for GI prophylaxis. Patient is a full code case D/W and ICU team Subjective Date of service: 09/17/21 Interval history: pt. evalueted today status is unchanged according to she noted slight muscles jerking last night and as per respiratory team pt. had few spontaneous breathing noted last night will do Apnea test findings is d/w family and test done in their presence Objective - Vital Sign Vital Signs - 12hr 09/17/21 09/17/21 09/17/21 00:40 00:50 01:00 Temperature Pulse Rate 99 H 100 H 101 H Pulse Rate [ Bilateral Throughout] Pulse Rate [ From Monitor] Respiratory 24 24 24 Rate Respiratory Rate [Bilateral Throughout] Blood Pressure 115/70 114/75 107/72 O2 Sat by Pulse 100 100 Oximetry 09/17/21 09/17/21 09/17/21 01:10 01:20 01:30 Temperature Pulse Rate 103 H 104 H 103 H Pulse Rate [ Bilateral Throughout] Pulse Rate [ From Monitor] Respiratory 24 24 24 Rate Respiratory Rate [Bilateral Throughout] Blood Pressure 107/72 100/67 110/71 O2 Sat by Pulse 100 100 Oximetry 09/17/21 09/17/21 09/17/21 01:40 01:50 02:00 Temperature Pulse Rate 104 H 105 H 104 H Pulse Rate [ Bilateral Throughout] Pulse Rate [ From Monitor] Respiratory 24 24 24 Rate Respiratory Rate [Bilateral Throughout] Blood Pressure 110/71 102/71 100/66 O2 Sat by Pulse 100 100 99 Oximetry 09/17/21 09/17/21 09/17/21 02:10 02:20 02:30 Temperature Pulse Rate 106 H 108 H 107 H Pulse Rate [ Bilateral Throughout] Pulse Rate [ From Monitor] Respiratory 18 12 24 Rate Respiratory Rate [Bilateral Throughout] Blood Pressure 100/66 96/62 98/62 O2 Sat by Pulse 98 98 Oximetry 09/17/21 09/17/21 09/17/21 02:40 02:50 03:00 Temperature Pulse Rate 109 H 110 H 109 H Pulse Rate [ Bilateral Throughout] Pulse Rate [ From Monitor] Respiratory 21 18 24 Rate Respiratory Rate [Bilateral Throughout] Blood Pressure 98/62 96/63 112/51 O2 Sat by Pulse 100 97 Oximetry 09/17/21 09/17/21 09/17/21 03:10 03:20 03:30 Temperature Pulse Rate 110 H 109 H 107 H Pulse Rate [ Bilateral Throughout] Pulse Rate [ From Monitor] Respiratory H 24 24 Rate Respiratory Rate [Bilateral Throughout] Blood Pressure 112/51 114/62 123/65 O2 Sat by Pulse 97 98 98 Oximetry 09/17/21 09/17/21 09/17/21 03:40 03:50 04:00 Temperature 99.5 F Pulse Rate 108 H 108 H 110 H Pulse Rate [ Bilateral Throughout] Pulse Rate [ 90 From Monitor] Respiratory 24 25 H 24 Rate Respiratory Rate [Bilateral Throughout] Blood Pressure 123/65 98/61 98/65 O2 Sat by Pulse 99 98 100 Oximetry 09/17/21 09/17/21 09/17/21 04:10 04:20 04:29 Temperature Pulse Rate 110 H 112 H 114 H Pulse Rate [ Bilateral Throughout] Pulse Rate [ From Monitor] Respiratory 21 Rate Respiratory Rate [Bilateral Throughout] Blood Pressure 98/65 107/68 116/62 O2 Sat by Pulse 98 98 94 Oximetry 09/17/21 09/17/21 09/17/21 04:30 04:40 04:50 Temperature Pulse Rate 113 H 116 H 113 H Pulse Rate [ Bilateral Throughout] Pulse Rate [ From Monitor] Respiratory H 24 24 Rate Respiratory Rate [Bilateral Throughout] Blood Pressure 116/62 116/62 99/53 O2 Sat by Pulse 96 94 95 Oximetry 09/17/21 09/17/21 09/17/21 05:00 05:10 05:20 Temperature Pulse Rate 117 H 117 H 116 H Pulse Rate [ Bilateral Throughout] Pulse Rate [ From Monitor] Respiratory 24 24 Rate Respiratory Rate [Bilateral Throughout] Blood Pressure 99/53 115/63 111/59 O2 Sat by Pulse 94 94 93 Oximetry 09/17/21 09/17/21 09/17/21 05:30 05:40 05:50 Temperature Pulse Rate 116 H 114 H 115 H Pulse Rate [ Bilateral Throughout] Pulse Rate [ From Monitor] Respiratory 25 H 24 24 Rate Respiratory Rate [Bilateral Throughout] Blood Pressure 99/50 99/50 100/54 O2 Sat by Pulse 89 94 92 Oximetry 09/17/21 09/17/21 09/17/21 06:00 06:10 06:20 Temperature Pulse Rate 113 H 114 H 114 H Pulse Rate [ Bilateral Throughout] Pulse Rate [ From Monitor] Respiratory 24 24 24 Rate Respiratory Rate [Bilateral Throughout] Blood Pressure 98/67 98/67 96/54 O2 Sat by Pulse 92 91 Oximetry 09/17/21 09/17/21 09/17/21 06:30 06:40 06:50 Temperature Pulse Rate 116 H 117 H 118 H Pulse Rate [ Bilateral Throughout] Pulse Rate [ From Monitor] Respiratory 24 Rate Respiratory Rate [Bilateral Throughout] Blood Pressure 97/57 97/57 99/69 O2 Sat by Pulse 92 92 Oximetry 09/17/21 09/17/21 09/17/21 07:00 07:10 07:16 Temperature 100.8 F H Pulse Rate 118 H 119 H Pulse Rate [ Bilateral Throughout] Pulse Rate [ From Monitor] Respiratory 24 25 H Rate Respiratory Rate [Bilateral Throughout] Blood Pressure 110/69 110/69 O2 Sat by Pulse 93 92 Oximetry 09/17/21 09/17/21 09/17/21 07:20 07:30 07:40 Temperature Pulse Rate 118 H 119 H 121 H Pulse Rate [ Bilateral Throughout] Pulse Rate [ From Monitor] Respiratory 24 24 25 H Rate Respiratory Rate [Bilateral Throughout] Blood Pressure 112/85 112/85 100/68 O2 Sat by Pulse 92 92 91 Oximetry 09/17/21 09/17/21 09/17/21 07:50 08:00 08:10 Temperature 100.8 F H Pulse Rate 121 H 121 H 122 H Pulse Rate [ Bilateral Throughout] Pulse Rate [ 124 H From Monitor] Respiratory 24 24 24 Rate Respiratory Rate [Bilateral Throughout] Blood Pressure 103/75 99/58 117/72 O2 Sat by Pulse 90 89 93 Oximetry 09/17/21 09/17/21 09/17/21 08:20 08:30 08:40 Temperature Pulse Rate 122 H 123 H 124 H Pulse Rate [ Bilateral Throughout] Pulse Rate [ From Monitor] Respiratory 24 Rate Respiratory Rate [Bilateral Throughout] Blood Pressure 117/72 115/59 115/59 O2 Sat by Pulse 89 88 Oximetry 09/17/21 09/17/21 09/17/21 08:50 09:00 09:10 Temperature Pulse Rate 124 H 122 H 123 H Pulse Rate [ Bilateral Throughout] Pulse Rate [ From Monitor] Respiratory 24 24 25 H Rate Respiratory Rate [Bilateral Throughout] Blood Pressure 120/58 122/62 122/62 O2 Sat by Pulse 89 89 88 Oximetry 09/17/21 09/17/21 09/17/21 09:20 09:30 09:39 Temperature Pulse Rate 125 H 124 H Pulse Rate [ 122 H Bilateral Throughout] Pulse Rate [ From Monitor] Respiratory 23 24 Rate Respiratory 24 Rate [Bilateral Throughout] Blood Pressure 118/86 118/86 O2 Sat by Pulse 90 89 Oximetry 09/17/21 09/17/21 09/17/21 09:40 09:50 10:00 Temperature Pulse Rate 125 H 125 H 126 H Pulse Rate [ Bilateral Throughout] Pulse Rate [ From Monitor] Respiratory 24 24 25 H Rate Respiratory Rate [Bilateral Throughout] Blood Pressure 99/58 97/70 97/70 O2 Sat by Pulse 86 88 90 Oximetry 09/17/21 09/17/21 09/17/21 10:10 10:20 10:30 Temperature Pulse Rate 127 H 126 H 126 H Pulse Rate [ Bilateral Throughout] Pulse Rate [ From Monitor] Respiratory 25 H 24 0 L Rate Respiratory Rate [Bilateral Throughout] Blood Pressure 120/50 91/64 91/64 O2 Sat by Pulse 87 87 88 Oximetry 09/17/21 09/17/21 09/17/21 10:40 10:50 11:00 Temperature Pulse Rate 130 H 130 H 130 H Pulse Rate [ Bilateral Throughout] Pulse Rate [ From Monitor] Respiratory 24 25 H 24 Rate Respiratory Rate [Bilateral Throughout] Blood Pressure 118/74 114/66 90/59 O2 Sat by Pulse 100 97 93 Oximetry 09/17/21 09/17/21 09/17/21 11:10 11:20 11:30 Temperature Pulse Rate 129 H 129 H 129 H Pulse Rate [ Bilateral Throughout] Pulse Rate [ From Monitor] Respiratory 24 Rate Respiratory Rate [Bilateral Throughout] Blood Pressure 90/59 91/65 99/57 O2 Sat by Pulse 94 91 88 Oximetry 09/17/21 09/17/21 09/17/21 11:40 11:50 12:00 Temperature 101.2 F H Pulse Rate 129 H 129 H 127 H Pulse Rate [ Bilateral Throughout] Pulse Rate [ 127 H From Monitor] Respiratory 24 24 24 Rate Respiratory Rate [Bilateral Throughout] Blood Pressure 99/57 109/87 103/56 O2 Sat by Pulse 86 86 87 Oximetry - General Apperance Constitutional: comfortable - Respiratory Respiratory: lungs clear, rhonchi - Cardiovascular Cardiovascular: regular rate, normal S1, normal S2 Extremities: no peripheral edema bilat, no clubbing, cyanosis - Gastrointestinal Gastrointestinal: normoactive bowel sounds - Integumentary Integumentary: normal - Neurologic Cranial nerve examination: other (NO sponateous breathing , no gag,no EOM ,no corneal reflexes , no movment is noted ) Detailed motor examination: other (no movment is noted) - Laboratory Findings CBC and BMP: 09/16/21 03:21 09/16/21 05:47 Abnormal Lab Findings: Abnormal Labs 09/16/21 09/16/21 09/16/21 03:06 03:06 03:21 MCV 95 H Seg Neuts % (Manual) 71.0 H PT 15.3 H ABG pH ABG pO2 ABG HCO3 ABG O2 Saturation ABG Base Excess VBG pH Oxyhemoglobin Potassium Chloride Carbon Dioxide 17 L BUN Creatinine 1.7 H Glucose 192 H POC Glucose Lactic Acid Calcium 8.3 L AST 217 H ALT 174 H Total Creatine Kinase 658 H CK-MB (CK-2) 6.3 H Troponin T Total Protein 6.2 L Albumin 3.5 L LDL Cholesterol Direct Urine Blood Urine WBC (Auto) 09/16/21 09/16/21 09/16/21 03:21 03:21 04:36 MCV Seg Neuts % (Manual) PT ABG pH ABG pO2 ABG HCO3 ABG O2 Saturation ABG Base Excess VBG pH 7.150 L* Oxyhemoglobin Potassium Chloride Carbon Dioxide BUN Creatinine Glucose POC Glucose Lactic Acid 10.70 H* Calcium AST ALT Total Creatine Kinase CK-MB (CK-2) Troponin T Total Protein Albumin LDL Cholesterol Direct Urine Blood Small A Urine WBC (Auto) 15.0 H 09/16/21 09/16/21 09/16/21 05:12 05:47 08:12 MCV Seg Neuts % (Manual) PT ABG pH 7.579 H ABG pO2 206.2 H ABG HCO3 26.7 H ABG O2 Saturation 99.4 H ABG Base Excess 5.7 H VBG pH Oxyhemoglobin Potassium 5.5 H Chloride 97.0 L Carbon Dioxide BUN 22 H Creatinine 1.9 H Glucose 131 H POC Glucose Lactic Acid 4.90 H* Calcium AST ALT Total Creatine Kinase CK-MB (CK-2) Troponin T Total Protein Albumin LDL Cholesterol Direct Urine Blood Urine WBC (Auto) 09/16/21 09/16/21 09/16/21 10:50 10:50 23:17 MCV Seg Neuts % (Manual) PT ABG pH ABG pO2 ABG HCO3 ABG O2 Saturation ABG Base Excess VBG pH Oxyhemoglobin Potassium Chloride Carbon Dioxide BUN Creatinine Glucose POC Glucose 113 H Lactic Acid 4.50 H* Calcium AST ALT Total Creatine Kinase CK-MB (CK-2) Troponin T 0.353 H* D Total Protein Albumin LDL Cholesterol Direct 38 L Urine Blood Urine WBC (Auto) 09/16/21 09/17/21 09/17/21 23:30 10:15 10:39 MCV Seg Neuts % (Manual) PT ABG pH 7.269 L 7.107 L* ABG pO2 58.7 L 39.6 L* ABG HCO3 29.2 H ABG O2 Saturation 86.8 L 54.7 L ABG Base Excess -2.5 L -3.1 L VBG pH Oxyhemoglobin 85.4 L 53.7 L Potassium Chloride Carbon Dioxide BUN Creatinine Glucose POC Glucose Lactic Acid 3.80 H* Calcium AST ALT Total Creatine Kinase CK-MB (CK-2) Troponin T Total Protein Albumin LDL Cholesterol Direct Urine Blood Urine WBC (Auto)
[2021-09-17 14:49] VITALS: BP 97/49
== END 2021-09-17 16:32 | DRG 208 ==
LOC: ED 02:35 → CC1 05:36
PROVIDERS: ADMIT Hospitalist; ATTEND Internal Medicine
PROC: 0BH17EZ Insertion of Endotracheal Airway into Trachea, Via Natural or Artificial Opening (ICD-10-PCS; principal; 2021-09-16)
PROC: 5A1935Z Respiratory Ventilation, Less than 24 Consecutive Hours (ICD-10-PCS; 2021-09-16)
PROC: 4A033R1 Measurement of Arterial Saturation, Peripheral, Percutaneous Approach (ICD-10-PCS; 2021-09-17)
DX: J96.00 Acute respiratory failure, unspecified whether with hypoxia or hypercapnia (principal); N17.9 Acute kidney failure, unspecified; I42.9 Cardiomyopathy, unspecified; E87.2 Acidosis; G93.1 Anoxic brain damage, not elsewhere classified; I46.9 Cardiac arrest, cause unspecified; E87.5 Hyperkalemia; I10 Essential (primary) hypertension; J44.9 Chronic obstructive pulmonary disease, unspecified; Z79.899 Other long term (current) drug therapy; I73.9 Peripheral vascular disease, unspecified; R77.8 Other specified abnormalities of plasma proteins; E87.8 Other disorders of electrolyte and fluid balance, not elsewhere classified
CPT/HCPCS: 36415; 36600; 71045; 78601; 80048; 80053; 80061; 80307; 80320; 81001; 82140; 82550; 82553; 82803; 82805; 82962; 84484; 85007; 85025; 85610; 87040; 87086; 93005; 93306; 94002; 94003; 94640; G0378; J2354; J3490; J7070; Q0162; A9512; C8929; G0480; J0171; J1265; J1644; J2543; J7030; J7040